=== PATIENT | male | born 1985 | race Two or more races ===

== ENCOUNTER 2024-01-04 13:52 | Emergency (ER) | payer OTHER ==
[~2024-01-04] VITALS: Ht 170.2 cm; Wt 64.4 kg
[2024-01-04] MEDS ORDERED: NS 1,000 ML IV SCH ×2 (14:40→16:50)
[2024-01-04 14:47] LABS: BASOPHILS ABSOLUTE AUTO 0.03 K/mm3 (0.00-0.23); BASOPHILS PERCENT AUTO 0 % (0-2); EOSINOPHILS PERCENT AUTO 0 % (0-6); Hematocrit 31.6 % (37.0-53.0); Hemoglobin 10.4 g/dL (13.5-17.5); IMMATURE GRAN ABSOLUTE AUTO 0.19 K/mm3 (0.00-0.10); IMMATURE GRAN PERCENT AUTO 1 % (0-1); LYMPHOCYTES ABSOLUTE AUTO 0.54 K/mm3 (0.84-5.20); LYMPHOCYTES PERCENT AUTO 3 % (21-46); MONOCYTES ABSOLUTE AUTO 1.54 K/mm3 (0.16-1.47); MONOCYTES PERCENT AUTO 7 % (4-13); Mean Corpuscular HGB 21.8 pg (26.0-34.0); Mean Corpuscular HGB Conc 32.9 g/dL (31.5-36.5); Mean Corpuscular Volume 66 fL (80-100); Mean Platelet Volume 10.8 fL (9.1-12.4); NEUTROPHILS ABSOLUTE AUTO 19.57 K/mm3 (1.96-9.15); NEUTROPHILS PERCENT AUTO 90 % (41-73); NRBC ABSOLUTE 0.26 K/mm3 (0.00-0.02); NRBC Auto 1.2 /100 WBC (0.0-0.2); Platelet Count 251 K/mm3 (150-400); RDW Coefficient Variation 14.3 % (11.7-14.2); RDW Standard Deviation 33.4 fL (35.1-46.3); Red Blood Cell Count 4.78 M/mm3 (4.30-5.90); White Blood Cell Count 21.87 K/mm3 (4.00-11.30)
[2024-01-04] MEDS ORDERED: Pantoprazole Sodium 40 MG Injection IV ONE (14:50)
[2024-01-04] MEDS ORDERED: LORazepam 2 MG/ML 1ML Injection IV ONE (14:50)
[2024-01-04] MEDS ORDERED: Pantoprazole Sodium 40 MG in NS 50 ML IV SCH (14:50)
[2024-01-04] MEDS ORDERED: Octreotide Acetate 500 MCG in NS 250 ML IV SCH (14:55)
[2024-01-04] MEDS ORDERED: Octreotide Acetate 50 MCG in NS 50 ML IV ONE (14:55)
[2024-01-04] MEDS ORDERED: Prochlorperazine Edisylate 10 mg Vial IV ONE (14:55)
[2024-01-04 14:57] LABS: Albumin, Blood 3.7 g/dL (3.4-5.0); Albumin/Globulin Ratio 0.9 (0.8-1.8); Bilirubin, Total 2.1 mg/dL (0.1-1.0); Bun/Creatinine Ratio 82.8 (12.0-20.0); Creatinine, Blood 0.87 mg/dL (0.60-1.20); Globulin, Blood 4.1 g/dL (2.2-4.0); Potassium, Blood 4.3 mmol/L (3.5-5.5); Total Protein, Blood 7.8 g/dL (6.4-8.2)
[2024-01-04 15:29] LABS: International Normalized Ratio 1.05; Prothrombin Time Results 11.2 Sec (9.7-11.5)
[2024-01-04] MEDS ORDERED: PHENobarbitaL sodium 130 MG/ML VIAL IV ONE (16:45)
[2024-01-04] MEDS ORDERED: CefTRIAXone Sodium 2,000 MG in NS 100 ML IV ONE (17:45)
[2024-01-04 19:15] VITALS: BP 137/95
== END 2024-01-04 19:28 | disposition short-term general hospital (02) ==
LOC: ER 13:52
PROVIDERS: Emergency Medicine
DX: K92.2 Gastrointestinal hemorrhage, unspecified (principal); D62 Acute posthemorrhagic anemia; F10.232 Alcohol dependence with withdrawal with perceptual disturbance; R56.9 Unspecified convulsions; F17.210 Nicotine dependence, cigarettes, uncomplicated; Z88.5 Allergy status to narcotic agent
CPT/HCPCS: 36415; 70450; 71045; 80053; 80320; 82272; 83605; 83690; 83735; 85025; 85610; 85730; 86850; 86900; 86901; 87040; 93005; 93010; 96361; 96365; 96366; 96368; 96375; 96376; 99285-25; J0696; J0780; J2060; J2354; J2470; J2560; J7030; J7050

== ENCOUNTER 2024-01-14 15:43 | Inpatient (IN) | payer OTHER ==
[~2024-01-14] VITALS: Ht 170.2 cm; Wt 62.6 kg
[2024-01-14] MEDS ORDERED: PROTONIX40 M9 PO (16:14)
[2024-01-14] MEDS ORDERED: Vitamin B-12100 MCG PO (16:14)
[2024-01-14] MEDS ORDERED: Ondansetron HCl 2 MG / ML 2ML Vial IV ONE (16:30)
[2024-01-14] MEDS ORDERED: FentaNYL Citrate 50 MCG/ML 2 ML Injection IV ONE (16:45)
[2024-01-14 16:57] LABS: BASOPHILS ABSOLUTE AUTO 0.07 K/mm3 (0.00-0.23); BASOPHILS PERCENT AUTO 0 % (0-2); EOSINOPHILS ABSOLUTE AUTO 0.12 K/mm3 (0.00-0.68); EOSINOPHILS PERCENT AUTO 1 % (0-6); Hematocrit 27.8 % (37.0-53.0); Hemoglobin 8.6 g/dL (13.5-17.5); IMMATURE GRAN ABSOLUTE AUTO 0.45 K/mm3 (0.00-0.10); IMMATURE GRAN PERCENT AUTO 3 % (0-1); LYMPHOCYTES ABSOLUTE AUTO 1.58 K/mm3 (0.84-5.20); LYMPHOCYTES PERCENT AUTO 9 % (21-46); MONOCYTES ABSOLUTE AUTO 1.85 K/mm3 (0.16-1.47); MONOCYTES PERCENT AUTO 11 % (4-13); Mean Corpuscular HGB 21.8 pg (26.0-34.0); Mean Corpuscular HGB Conc 30.9 g/dL (31.5-36.5); Mean Corpuscular Volume 70 fL (80-100); NEUTROPHILS ABSOLUTE AUTO 13.31 K/mm3 (1.96-9.15); NEUTROPHILS PERCENT AUTO 77 % (41-73); NRBC ABSOLUTE 0.05 K/mm3 (0.00-0.02); NRBC Auto 0.3 /100 WBC (0.0-0.2); Platelet Count 550 K/mm3 (150-400); RDW Coefficient Variation 17.6 % (11.7-14.2); RDW Standard Deviation 42.4 fL (35.1-46.3); Red Blood Cell Count 3.95 M/mm3 (4.30-5.90); White Blood Cell Count 17.38 K/mm3 (4.00-11.30)
[2024-01-14 17:14] LABS: Albumin, Blood 3.1 g/dL (3.4-5.0); Albumin/Globulin Ratio 0.7 (0.8-1.8); Bilirubin, Total 0.7 mg/dL (0.1-1.0); Bun/Creatinine Ratio 16.9 (12.0-20.0); Calcium, Blood 9.3 mg/dL (8.5-10.1); Creatinine, Blood 0.71 mg/dL (0.60-1.20); Globulin, Blood 4.3 g/dL (2.2-4.0); Potassium, Blood 3.9 mmol/L (3.5-5.5); Total Protein, Blood 7.4 g/dL (6.4-8.2)
[2024-01-14] MEDS ORDERED: FLU VACC TS2024-25(6MOS UP)/PF 45 MCG/0.5 ML SYRINGE IM ONE (18:05)
[2024-01-14] MEDS ORDERED: Ondansetron HCl 2 MG / ML 2ML Vial IV PRN (18:05)
[2024-01-14] MEDS ORDERED: FentaNYL Citrate 50 MCG/ML 2 ML Injection IV PRN ×2 (18:10→20:45)
[2024-01-14] MEDS ORDERED: NS 1,000 ML IV SCH (18:10)
[2024-01-14 18:27] LABS: Percent Saturation 8.7 % (20.0-50.0)
[2024-01-14 19:52] LABS: International Normalized Ratio 1.01; Prothrombin Time Results 10.8 Sec (9.7-11.5)
[2024-01-14 20:40] VITALS: BP 128/91
[2024-01-14] MEDS ORDERED: Sennosides 8.6 MG Tab PO SCH (21:00)
[2024-01-14 21:25] LABS: Hemoglobin 8.2 g/dL (13.5-17.5)
[2024-01-15] VITALS (21 sets, daily range): BP systolic 122–156; BP diastolic 77–102
[2024-01-15] MEDS ORDERED: OxyCODONE HCL 5 MG TAB PO PRN ×2 (04:35→12:55)
[2024-01-15] MEDS ORDERED: HYDROmorphone HCl/Pf 1MG SYR IV PRN ×2 (04:35→13:00)
[2024-01-15 04:53] LABS: Hematocrit 25.3 % (37.0-53.0); Hemoglobin 7.9 g/dL (13.5-17.5); Mean Corpuscular HGB 21.8 pg (26.0-34.0); Mean Corpuscular HGB Conc 31.2 g/dL (31.5-36.5); Mean Corpuscular Volume 70 fL (80-100); Mean Platelet Volume 8.8 fL (9.1-12.4); Platelet Count 503 K/mm3 (150-400); RDW Coefficient Variation 17.2 % (11.7-14.2); RDW Standard Deviation 41.8 fL (35.1-46.3); Red Blood Cell Count 3.63 M/mm3 (4.30-5.90); White Blood Cell Count 15.58 K/mm3 (4.00-11.30)
[2024-01-15 05:34] LABS: Albumin, Blood 2.7 g/dL (3.4-5.0); Albumin/Globulin Ratio 0.7 (0.8-1.8); Bilirubin, Total 0.6 mg/dL (0.1-1.0); Bun/Creatinine Ratio 17.8 (12.0-20.0); Calcium, Blood 8.6 mg/dL (8.5-10.1); Creatinine, Blood 0.68 mg/dL (0.60-1.20); Globulin, Blood 3.9 g/dL (2.2-4.0); Potassium, Blood 4.1 mmol/L (3.5-5.5); Total Protein, Blood 6.6 g/dL (6.4-8.2)
--- NOTE | 2024-01-15 06:01 | NUR ---
THIS NURSE ASSUMED CARE OF PATIENT AT 0250. PATIENT IS ALERT AND ORIENTED. HE IS COMPLAINING OF RT HIP PAIN. PT WAS MEDICATED WITH FENTANYL 50MCG IV WITH MINIMAL RELIEF THIS TIME. DR. QUINTANA CALLED AND PT MEDS CHANGED, GIVEN DILAUDID 1MG. PT TOLD NURSE HE HAD ALMOST INSTANT RELIEF BUT NOW STATES PAIN STAYED AT A 7/10. PT IS SL DIAPHORETIC, HAS SOME TREMORS, PT DENIES ANY WITHDRAWL SYMPTOMS, STATES IT IS FROM THE PAIN. PT IS NPO FOR POSSIBLE SURG TODAY. IV FLUIDS ORDERED. PT IS ON BEDREST AND USING URINAL. CALL LIGHT IN REACH.
[2024-01-15 08:18] LABS: IMMATURE RETIC FRACTION 45.2 % (2.3-16.0); RETIC HGB EQUIVALENT 21.2 pg (28.20-36.60); RETICULOCYTE ABSOLUTE 0.1448 M/mm3 (0.0200-0.1100)
[2024-01-15] MEDS ORDERED: Pantoprazole Sodium 40 MG Injection IV SCH (09:00)
[2024-01-15] MEDS ORDERED: HydrOXYzine Pamoate 50 MG Cap PO ONE (10:00)
[2024-01-15] MEDS ORDERED: HydrOXYzine Pamoate 50 MG Cap PO PRN (10:00)
[2024-01-15] MEDS ORDERED: VITAMIN B-1100 M1 PO (10:23)
[2024-01-15] MEDS ORDERED: Lactated Ringer's 1,000 ML IV SCH (10:25)
--- NOTE | 2024-01-15 11:06 | NUR ---
PT ARRIVED TO ROOM VIA HOSPITAL BED. A&O X4. VSS. PPP. PLEASENT MOOD. ORIENTED TO ROOM. BED IN LOWEST POSITION, CALL LIGHT WITHIN REACH.
--- NOTE | 2024-01-15 11:46 | NUR ---
PT WHEELED TO DAY SURG VIA HOSPITAL BED AT THIS TIME
--- NOTE | 2024-01-15 11:58 | NUR ---
TRANSFER TO SURG 213 1030 PT A&OX4, COOPERATIVE. DISCUSSIONS SURGICAL OPTIONS WITH PT WITH RN PRESENT. DORA PAZ AND THIS RN TOOK PT DOWN TO SURG 213. REPORT GIVEN TO LENNOX PAZ.
[2024-01-15] MEDS ORDERED: Tranexamic Acid 100 ML IV SCH (12:00)
[2024-01-15] MEDS ORDERED: HYDROmorphone HCl/Pf 1MG SYR ONE (12:00)
[2024-01-15] MEDS ORDERED: CeFAZolin Sodium 2,000 MG in NS 100 ML IV SCH ×2 (12:00→21:00)
[2024-01-15] MEDS ORDERED: Magnesium Hydroxide Conc 10 ML UDC PO PRN (12:55)
[2024-01-15] MEDS ORDERED: Metoclopramide HCl 10 MG Tab PO PRN (12:55)
[2024-01-15] MEDS ORDERED: NS KCl 20mEq 1,000 ML IV SCH (12:55)
[2024-01-15] MEDS ORDERED: Ondansetron HCl 2 MG / ML 2ML Vial IV PRN (13:00)
[2024-01-15] MEDS ORDERED: DiphenhydrAMINE HCL 25 MG Cap PO PRN (13:00)
[2024-01-15] MEDS ORDERED: Ondansetron 4 MG TAB PO PRN (13:00)
[2024-01-15] MEDS ORDERED: Naloxone HCl 0.4MG / ML 1ML Vial IV PRN (13:00)
[2024-01-15] MEDS ORDERED: FLU VACC TS2024-25(6MOS UP)/PF 45 MCG/0.5 ML SYRINGE IM PRN (13:00)
[2024-01-15] MEDS ORDERED: Bisacodyl 10 MG Supp PR PRN (13:00)
[2024-01-15] MEDS ORDERED: Acetaminophen 325 MG TABLET PO PRN (13:05)
[2024-01-15] MEDS ORDERED: FentaNYL Citrate 50 MCG/ML 2 ML Injection ONE ×2 (13:09→14:21)
[2024-01-15] MEDS ORDERED: propofoL 20 ML IV ONE (13:09)
[2024-01-15] MEDS ORDERED: Rocuronium Bromide 10 MG/ML 5ML Injection IV ONE (14:12)
[2024-01-15] MEDS ORDERED: Dexamethasone Sod Phos 10 MG/ML 1ML VIAL ONE (14:12)
[2024-01-15] MEDS ORDERED: Lidocaine HCl 2% 20 ML MDV ONE (14:12)
[2024-01-15] MEDS ORDERED: Ondansetron HCl 2 MG / ML 2ML Vial ONE (14:12)
[2024-01-15] MEDS ORDERED: Neostigmine Methylsulfate 5MG/5ML SYR ONE (14:13)
[2024-01-15] MEDS ORDERED: Glycopyrrolate 0.2 MG/ML 5ML VIAL ONE (14:13)
--- NOTE | 2024-01-15 15:18 | NUR ---
PT ARRIVED TO FLOOR VIA HOSPITAL BED. A&O X4, PT STATES HE IS HYPERTENSIVE AT BASELINE. BP ELEVATED. VSS. PPP, INCISION COVERED WITH GAUZE AND FOAM TAPE C/D/I. SNACKS AND WATER AT BEDSIDE. BED IN LOWEST POSITION. CALL LIGHT WITHIN REACH.
--- NOTE | 2024-01-15 17:22 | NUR ---
SHIFT SUMMARY POD 0 L HIP NAILING. INCISION COVERED WITH GAUZE AND FOAM TAPE. C/D/I. PPP. PT IS EATING AND VOIDING WITHOUT ISSUE. HAS EATEN A COUPLE BITES OF A CRACKER SINCE RETURNING TO THE ROOM. PAIN MEDICATED PER EMAR.
[2024-01-15] MEDS ORDERED: Docusate Sodium 100 MG Cap PO SCH (21:00)
[2024-01-16] MEDS ORDERED: OxyCODONE HCL 5 MG TAB PO PRN (00:17)
[2024-01-16 03:47] VITALS: BP 143/96
[2024-01-16 05:01] LABS: BASOPHILS ABSOLUTE AUTO 0.05 K/mm3 (0.00-0.23); BASOPHILS PERCENT AUTO 0 % (0-2); EOSINOPHILS ABSOLUTE AUTO 0.07 K/mm3 (0.00-0.68); EOSINOPHILS PERCENT AUTO 0 % (0-6); Hematocrit 26.3 % (37.0-53.0); Hemoglobin 8.3 g/dL (13.5-17.5); IMMATURE GRAN PERCENT AUTO 1 % (0-1); LYMPHOCYTES ABSOLUTE AUTO 1.31 K/mm3 (0.84-5.20); LYMPHOCYTES PERCENT AUTO 8 % (21-46); MONOCYTES ABSOLUTE AUTO 1.59 K/mm3 (0.16-1.47); MONOCYTES PERCENT AUTO 9 % (4-13); Mean Corpuscular HGB 21.8 pg (26.0-34.0); Mean Corpuscular HGB Conc 31.6 g/dL (31.5-36.5); Mean Corpuscular Volume 69 fL (80-100); Mean Platelet Volume 8.9 fL (9.1-12.4); NEUTROPHILS ABSOLUTE AUTO 14.06 K/mm3 (1.96-9.15); NEUTROPHILS PERCENT AUTO 81 % (41-73); Platelet Count 516 K/mm3 (150-400); RDW Coefficient Variation 16.9 % (11.7-14.2); RDW Standard Deviation 40.6 fL (35.1-46.3); White Blood Cell Count 17.28 K/mm3 (4.00-11.30)
[2024-01-16 05:27] LABS: Albumin, Blood 2.8 g/dL (3.4-5.0); Albumin/Globulin Ratio 0.7 (0.8-1.8); Bilirubin, Total 0.7 mg/dL (0.1-1.0); Bun/Creatinine Ratio 12.9 (12.0-20.0); Calcium, Blood 9.4 mg/dL (8.5-10.1); Creatinine, Blood 0.62 mg/dL (0.60-1.20); Potassium, Blood 3.7 mmol/L (3.5-5.5); Total Protein, Blood 6.8 g/dL (6.4-8.2)
--- NOTE | 2024-01-16 05:40 | NUR ---
NOC SUMMARY- PT WAS COMPLAINING OF CONTINUED PAIN. DR QUINTANA WAS CALLED AND ORDERED ADDITIONAL PO PAIN MED. PT REFUSED TO TRY AND AMBULATE WITH GB AND FWW. PT REMAINS TREMULOUS. PT IS VOIDING WELL VIA URINAL. PT TAKING IN PO FLUIDS WELL. DRESSING C/D/I. CALL LIGHT IN REACH.
[2024-01-16 07:34] VITALS: BP 156/99
[2024-01-16] MEDS ORDERED: Thiamine HCl 100 MG Tab PO SCH (09:00)
[2024-01-16 15:13] VITALS: BP 166/106
--- NOTE | 2024-01-16 18:45 | NUR ---
SHIFT SUMMARY POD 1 R HIP PINNING. INCISION SITE COVERED WITH AQUACEL, C/D/I. PT STATES THAT HIP IS STILL VERY PAINFUL TO MOVE. PAIN MEDICATED PER EMAR. PPP. VSS. A&O X4. WORKED WITH PT THIS AFTERNOON, WILL WORK WITH PHYSICAL THERAPY TOMORROW. NO ACUTE EVENTS THROUGHOUT THE DAY.
[2024-01-16 19:01] VITALS: BP 168/95
[2024-01-17 03:16] VITALS: BP 141/93
[2024-01-17 04:49] LABS: BASOPHILS ABSOLUTE AUTO 0.04 K/mm3 (0.00-0.23); BASOPHILS PERCENT AUTO 0 % (0-2); EOSINOPHILS ABSOLUTE AUTO 0.21 K/mm3 (0.00-0.68); EOSINOPHILS PERCENT AUTO 2 % (0-6); Hematocrit 27.5 % (37.0-53.0); Hemoglobin 8.8 g/dL (13.5-17.5); IMMATURE GRAN ABSOLUTE AUTO 0.16 K/mm3 (0.00-0.10); IMMATURE GRAN PERCENT AUTO 1 % (0-1); LYMPHOCYTES ABSOLUTE AUTO 1.53 K/mm3 (0.84-5.20); LYMPHOCYTES PERCENT AUTO 12 % (21-46); MONOCYTES ABSOLUTE AUTO 1.34 K/mm3 (0.16-1.47); MONOCYTES PERCENT AUTO 11 % (4-13); Mean Corpuscular HGB 21.9 pg (26.0-34.0); Mean Corpuscular Volume 69 fL (80-100); Mean Platelet Volume 8.8 fL (9.1-12.4); NEUTROPHILS ABSOLUTE AUTO 9.06 K/mm3 (1.96-9.15); NEUTROPHILS PERCENT AUTO 73 % (41-73); Platelet Count 495 K/mm3 (150-400); RDW Coefficient Variation 15.9 % (11.7-14.2); RDW Standard Deviation 38.6 fL (35.1-46.3); Red Blood Cell Count 4.01 M/mm3 (4.30-5.90); White Blood Cell Count 12.34 K/mm3 (4.00-11.30)
[2024-01-17 05:20] LABS: Bun/Creatinine Ratio 12.1 (12.0-20.0); Creatinine, Blood 0.58 mg/dL (0.60-1.20); Potassium, Blood 3.8 mmol/L (3.5-5.5)
--- NOTE | 2024-01-17 05:46 | NUR ---
NOC SUMMARY- PT PAIN HAS BEEN MANAGED WITH PO MEDS ONLY THIS SHIFT. PT IS AWARE HE HAS TO USE PO PAIN MEDS AT HOME. PT ABLE TO SLEEP SOME. PT VOIDING WELL. PT DRESSING C/D/I. CALL LIGHT IN REACH.
[2024-01-17 08:13] VITALS: BP 144/92
[2024-01-17 16:34] VITALS: BP 136/94
--- NOTE | 2024-01-17 19:46 | NUR ---
SHIFT SUMMARY POD2 R PERC HIP PINNING, A/OX4, VSS, TOLERATING PO, ABLE TO GET UP TO CHAIR. PT REPOTS POOR PAIN MANAGEMENT EVEN THOUGH HE DOES NOT APPEAR TO BE IN ANY SIGNIFICANT AMOUNT OF PAIN. HE IS CONSISTENTLY REPORTING HIGH PAIN LEVELS USIN 0-10 SCALE EVEN THOUGH FACE AND FLACC SCALE BOTH SHOW LOW PAIN. FACE AND FLACC SCALE DO GO UP BY 1 POINT WITH MOVEMENT/AMBULATION BUT HAVE NOT EXCEEDED 4 AT ANY TIME TODAY. NO ACUTE EVENTS THIS SHIFT, CALL LIGHT IN REACH.
[2024-01-17 19:47] VITALS: BP 137/90
--- NOTE | 2024-01-18 04:49 | NUR ---
SHIFT SUMMARY PT S/P RIGHT HIP PINNING, PT HAS RESTED IN BED T/O THE NIGHT. INTERMITTENT PAIN RELEIVED WITH MEDS PER EMAR. SURGICAL SITE WNL, DRESSING INTACT. VITALS ARE STABLE. PLAN OF CARE UNCHANGED. BED IN LOWEST POSITION, CALL LIGHT WITHIN REACH.
[2024-01-18 05:07] VITALS: BP 144/97
[2024-01-18 07:10] VITALS: BP 144/92
[2024-01-18 15:51] VITALS: BP 148/103
--- NOTE | 2024-01-18 18:42 | NUR ---
SHIFT SUMMARY PT IS POD#2 FROM R HIP PINNING. PAIN MANAGED WITH PO PAIN MEDICATION AND IV DILAUDID X2. PT IS A 1 ASSIST WHEN OOB WITH GAIT BELT AND WALKER. PT WORKED WITH PT TODAY. PT REMAINS IN THE HOSPITAL FOR PAIN MANAGEMENT. PT USES CALL LIGHT APPROPRIATELY.
[2024-01-18 19:37] VITALS: BP 147/97
[2024-01-18] MEDS ORDERED: HydrOXYzine Pamoate 50 MG Cap PO PRN (22:00)
[2024-01-19 00:12] VITALS: BP 136/95
[2024-01-19 05:23] VITALS: BP 151/98
[2024-01-19 06:30] LABS: Hematocrit 29.1 % (37.0-53.0); Hemoglobin 9.1 g/dL (13.5-17.5); Mean Corpuscular HGB 21.5 pg (26.0-34.0); Mean Corpuscular HGB Conc 31.3 g/dL (31.5-36.5); Mean Corpuscular Volume 69 fL (80-100); Mean Platelet Volume 9.2 fL (9.1-12.4); Platelet Count 527 K/mm3 (150-400); RDW Coefficient Variation 15.3 % (11.7-14.2); RDW Standard Deviation 37.2 fL (35.1-46.3); Red Blood Cell Count 4.23 M/mm3 (4.30-5.90); White Blood Cell Count 9.13 K/mm3 (4.00-11.30)
[2024-01-19 07:09] LABS: Albumin, Blood 3.1 g/dL (3.4-5.0); Albumin/Globulin Ratio 0.7 (0.8-1.8); Bilirubin, Total 0.7 mg/dL (0.1-1.0); Bun/Creatinine Ratio 21.3 (12.0-20.0); Calcium, Blood 9.7 mg/dL (8.5-10.1); Creatinine, Blood 0.56 mg/dL (0.60-1.20); Globulin, Blood 4.5 g/dL (2.2-4.0); Potassium, Blood 4.1 mmol/L (3.5-5.5); Total Protein, Blood 7.6 g/dL (6.4-8.2)
--- NOTE | 2024-01-19 07:15 | NUR ---
SHIFT SUMMARY NOC. PT S/P RIGHT HIP PINNING. A/O X4, AQUACEL C/D/I ASIDE FROM SCANT DRAINAGE. PT VOIDING AND TOLERATING PO INTAKE. PT HAD BM THIS SHIFT. PT MEDICATED FOR PAIN WITH SOME REPORTED RELIEF OF SX. PT HAD VISTARIL X1 FOR ANXIETY. CALL LIGHT IN REACH.
[2024-01-19 07:31] VITALS: BP 122/95
[2024-01-19] MEDS ORDERED: OXYC10TA19 PO (10:38)
[2024-01-19] MEDS ORDERED: MIRALAX17 GM PO (11:58)
[2024-01-19 14:46] VITALS: BP 145/98
--- NOTE | 2024-01-19 15:27 | NUR ---
SHIFT SUMMARY PT PROVIDED WITH WRITTEN AND VERBAL DISCHARGE INSTRUCTIONS, HE REPORTED UNDERSTANDING. PT REPORTED PAIN ELEVATED AFTER GETTING DRESSED AND READY FOR DISCHARGE BUT TOLERABLE. EDUCATION PROVIDED ABOUT OXYCODONE AND TYLENOL USE FOR PAIN. PT DECLINED TO WEAR [facility] HOME. [facility] SENT HOME WITH PT. PT ENCOURAGED TO GET OOB AND MOVE EVERY 1-2 HOURS TO PREVENT STIFFNESS AND BLOOD CLOTS. PT SENT HOME WITH WALKER. VSS PRIOR TO DISCHARGE. PT ENCOURAGED TO F/U WITH PCP WITHIN 1 WEEK AND TO F/U WITH DR. OLSON IN 2 WKS. PT SENT HOME WITH CLEAN AQUACEL DRESSINGS. PRESCRIPTION SENT WITH PT FOR OXYCODONE.
== END 2024-01-19 14:49 | disposition home health service (06) | DRG 480 ==
LOC: ER 15:43 → SURS 18:03 → ERHOLD 18:03 → MEDS 18:03 → SURS 01-15 10:46
PROVIDERS: Family Medicine; Nurse Practitioner Acute Care; Orthopaedic Surgery; Physician Assistant; Student in an Organized Health Care Education/Training Program; ADMIT Student in an Organized Health Care Education/Training Program
PROC: 0QS604Z Reposition Right Upper Femur with Internal Fixation Device, Open Approach (ICD-10-PCS; principal; 2024-01-15 12:30)
DX: S72.011A Unspecified intracapsular fracture of right femur, initial encounter for closed fracture (principal); S39.012A Strain of muscle, fascia and tendon of lower back, initial encounter; S76.011A Strain of muscle, fascia and tendon of right hip, initial encounter; S60.211A Contusion of right wrist, initial encounter; K22.6 Gastro-esophageal laceration-hemorrhage syndrome; M25.551 Pain in right hip; V29.99XA Rider (driver) (passenger) of other motorcycle injured in unspecified traffic accident, initial encounter; D72.829 Elevated white blood cell count, unspecified; D50.9 Iron deficiency anemia, unspecified; F41.9 Anxiety disorder, unspecified; F10.20 Alcohol dependence, uncomplicated; Z88.5 Allergy status to narcotic agent; Z79.899 Other long term (current) drug therapy; F17.210 Nicotine dependence, cigarettes, uncomplicated
CPT/HCPCS: 36415; 72100; 72192; 73110; 73502; 80048; 80053; 80320; 82728; 83540; 83550; 85014; 85018; 85025; 85027; 85045; 85610; 86850; 86900; 86901; 94760; 94762; 96374; 96375; 97110; 97116; 97161; 97165; 97530; 97535; 99284-25; A9270; C1713; C1769; J0690; J1100; J1170; J2405; J2470; J2704; J2710; J3010; J7030; J7120

== ENCOUNTER 2024-05-05 09:21 | Day surgery (SDC) | payer OTHER ==
[~2024-05-05] VITALS: Ht 170.2 cm; Wt 67.4 kg
[~2024-05-05 09:21] MED LIST: Lactated Ringer's 1,000 ML IV ONE; MIRALAX17 GM PO; OXYC10TA19 PO; PROTONIX40 M9 PO; VITAMIN B-1100 M1 PO; Vitamin B-12100 MCG PO; propofoL 40 ML IV ONE
[2024-05-05 10:13] VITALS: BP 173/115
--- NOTE | 2024-05-05 10:46 | NUR ---
05/05/24 [address] PT PRESENTED TO [facility] FOR OUTPATIENT ENDOSCOPY PROCEDURE, PT REPORTED HX OF ALCOHOL ABUSE, REPORTING LAST DRINK LAST NIGHT AT 5:00 PM. PER H AND P, PT WITH HX OF PINT PER DAY OF HARD ALCOHOL. PT IS ATTEMPTING TO QUIT ALCOHOL ABUSE, PRESENTS HYPERTENSIVE, AND SHAKING, IN ACTIVE DETOX. DR. VALLADARES CONSULTED AND DR. HERNANDEZ DISCUSSED CASE, DECISION WAS MADE TO DC PATIENT TO CHECK IN TO ER FOR MONITORING.
== END 2024-05-05 10:45 | disposition home or self-care (01) ==
LOC: ORSCSDS 09:21
DX: K22.6 Gastro-esophageal laceration-hemorrhage syndrome (principal); Z53.9 Procedure and treatment not carried out, unspecified reason
CPT/HCPCS: J2704; J7120

== ENCOUNTER 2024-05-05 10:42 | Emergency (ER) | payer OTHER ==
[~2024-05-05] VITALS: Ht 170.2 cm; Wt 67.1 kg
[~2024-05-05 10:42] MED LIST changes: -Lactated Ringer's 1,000 ML IV ONE; -propofoL 40 ML IV ONE
[2024-05-05 11:05] VITALS: BP 185/110
== END 2024-05-05 11:16 | disposition home or self-care (01) ==
LOC: ER 10:42
DX: F10.239 Alcohol dependence with withdrawal, unspecified (principal); F17.210 Nicotine dependence, cigarettes, uncomplicated; Z79.899 Other long term (current) drug therapy; Z88.5 Allergy status to narcotic agent
CPT/HCPCS: 99284

== ENCOUNTER 2024-05-07 09:55 | Inpatient (IN) | payer OTHER ==
[~2024-05-07] VITALS: Ht 170.2 cm; Wt 64.1 kg
[2024-05-07] MEDS ORDERED: Ondansetron HCl 2 MG / ML 2ML Vial IV ONE (10:25)
[2024-05-07] MEDS ORDERED: Lactated Ringer's 1,000 ML IV ONE (10:25)
[2024-05-07] MEDS ORDERED: Multivitamins 1 Tab PO ONE (10:30)
[2024-05-07] MEDS ORDERED: PHENobarbital Sodium 65MG / ML 1ML Vial IV ONE (10:30)
[2024-05-07] MEDS ORDERED: Thiamine HCl 100 MG Tab PO ONE (10:30)
[2024-05-07] MEDS ORDERED: Folic Acid 1 MG TAB PO ONE (10:30)
[2024-05-07 10:53] LABS: BASOPHILS ABSOLUTE AUTO 0.02 K/mm3 (0.00-0.23); BASOPHILS PERCENT AUTO 0 % (0-2); EOSINOPHILS PERCENT AUTO 2 % (0-6); Hematocrit 39.5 % (37.0-53.0); Hemoglobin 12.9 g/dL (13.5-17.5); IMMATURE GRAN ABSOLUTE AUTO 0.07 K/mm3 (0.00-0.10); IMMATURE GRAN PERCENT AUTO 1 % (0-1); LYMPHOCYTES ABSOLUTE AUTO 0.88 K/mm3 (0.84-5.20); LYMPHOCYTES PERCENT AUTO 13 % (21-46); MONOCYTES PERCENT AUTO 10 % (4-13); Mean Corpuscular HGB 20.9 pg (26.0-34.0); Mean Corpuscular HGB Conc 32.7 g/dL (31.5-36.5); Mean Corpuscular Volume 64 fL (80-100); Mean Platelet Volume 8.5 fL (9.1-12.4); NEUTROPHILS PERCENT AUTO 74 % (41-73); Platelet Count 236 K/mm3 (150-400); RDW Coefficient Variation 16.9 % (11.7-14.2); RDW Standard Deviation 35.4 fL (35.1-46.3); Red Blood Cell Count 6.18 M/mm3 (4.30-5.90); White Blood Cell Count 6.77 K/mm3 (4.00-11.30)
[2024-05-07 11:11] LABS: Albumin, Blood 3.7 g/dL (3.4-5.0); Albumin/Globulin Ratio 0.9 (0.8-1.8); Bilirubin, Total 1.4 mg/dL (0.1-1.0); Bun/Creatinine Ratio 21.9 (12.0-20.0); Calcium, Blood 9.1 mg/dL (8.5-10.1); Creatinine, Blood 0.55 mg/dL (0.60-1.20); Globulin, Blood 4.3 g/dL (2.2-4.0); Magnesium, Blood 1.5 mg/dL (1.6-2.4); Potassium, Blood 3.4 mmol/L (3.5-5.5)
[2024-05-07] MEDS ORDERED: ChlordiazePOXIDE 25 MG Cap PO PRN (13:15)
[2024-05-07] MEDS ORDERED: Lactated Ringer's 1,000 ML IV SCH (13:20)
[2024-05-07] MEDS ORDERED: LORazepam 2 MG/ML 1ML Injection IV PRN ×3 (13:20→17:30)
[2024-05-07] MEDS ORDERED: Ondansetron HCl 2 MG / ML 2ML Vial IV PRN (13:20)
[2024-05-07] MEDS ORDERED: Diazepam 5 MG / ML 2ML SYR IV PRN (13:20)
[2024-05-07] MEDS ORDERED: FLU VACC TS2024-25(6MOS UP)/PF 45 MCG/0.5 ML SYRINGE IM SCH (13:20)
[2024-05-07] MEDS ORDERED: Nicotine 21 MG PATCH TOP SCH (14:00)
[2024-05-07] MEDS ORDERED: Gabapentin 300 MG Cap PO SCH (14:00)
[2024-05-07] MEDS ORDERED: Thiamine HCl 250 MG in NS 100 ML IV SCH (14:00)
[2024-05-07 15:52] VITALS: BP 153/107
[2024-05-07] MEDS ORDERED: CITALOPRAM HBR10 MG PO (15:54)
[2024-05-07 16:22] VITALS: BP 136/92
[2024-05-07] MEDS ORDERED: Pantoprazole Sodium 40 MG Injection IV SCH (16:30)
[2024-05-07] MEDS ORDERED: Mag Sulfate 1 GM/D5% 100ML 100 ML IV STA (17:33)
[2024-05-07] MEDS ORDERED: Potassium Chloride 40 MEQ in NS 250 ML IV STA (17:34)
--- NOTE | 2024-05-07 18:50 | NUR ---
SHIFT SUMMARY: PT ARRIVED TO PCU 8 FROM THE ED AT 1540. PT ARRIVED VIA WHEELCHAIR AND WAS ABLE TO AMBULATE TO THE BED WITH 1 PERSON ASSIST. PT ARRIVED REPORTING THAT HE FELT DISORIENTATED. A CIWA WAS PERFORMED AND PT WAS AT A 15. PT WAS MEDICATED AND HAS BEEN RESTING SINCE. A SECOND LINE WAS STARTED. PT REMAINS ON TELE AND CONTINUOUS BIOX. MAG AND POTASSIUM WERE STARTED ON PT. LR CONTINUESA T 100ML/HR. SEIZURE PADS PLACED ON BED. BED IN LOW POSITION AND CALL LIGHT IS WITHIN REACH.
[2024-05-08] VITALS (10 sets, daily range): BP systolic 133–160; BP diastolic 94–108
[2024-05-08 04:18] LABS: BASOPHILS ABSOLUTE AUTO 0.03 K/mm3 (0.00-0.23); BASOPHILS PERCENT AUTO 0 % (0-2); EOSINOPHILS ABSOLUTE AUTO 0.19 K/mm3 (0.00-0.68); EOSINOPHILS PERCENT AUTO 3 % (0-6); Hematocrit 35.9 % (37.0-53.0); Hemoglobin 11.7 g/dL (13.5-17.5); IMMATURE GRAN ABSOLUTE AUTO 0.07 K/mm3 (0.00-0.10); IMMATURE GRAN PERCENT AUTO 1 % (0-1); LYMPHOCYTES ABSOLUTE AUTO 1.48 K/mm3 (0.84-5.20); LYMPHOCYTES PERCENT AUTO 22 % (21-46); MONOCYTES ABSOLUTE AUTO 0.77 K/mm3 (0.16-1.47); MONOCYTES PERCENT AUTO 11 % (4-13); Mean Corpuscular HGB 20.9 pg (26.0-34.0); Mean Corpuscular HGB Conc 32.6 g/dL (31.5-36.5); Mean Corpuscular Volume 64 fL (80-100); NEUTROPHILS ABSOLUTE AUTO 4.31 K/mm3 (1.96-9.15); NEUTROPHILS PERCENT AUTO 63 % (41-73); NRBC ABSOLUTE 0.02 K/mm3 (0.00-0.02); NRBC Auto 0.3 /100 WBC (0.0-0.2); Platelet Count 221 K/mm3 (150-400); RDW Coefficient Variation 16.8 % (11.7-14.2); RDW Standard Deviation 35.7 fL (35.1-46.3); Red Blood Cell Count 5.59 M/mm3 (4.30-5.90); White Blood Cell Count 6.85 K/mm3 (4.00-11.30)
[2024-05-08 04:40] LABS: Bun/Creatinine Ratio 13.3 (12.0-20.0); Calcium, Blood 8.8 mg/dL (8.5-10.1); Creatinine, Blood 0.6 mg/dL (0.60-1.20); Potassium, Blood 3.9 mmol/L (3.5-5.5)
--- NOTE | 2024-05-08 04:56 | NUR ---
SHIFT SUMMARY PT APPEARS TO HAVE INCREASING WITHDRAWL SYMPTOMS THROUGHOUT SHIFT, HOWEVER, SYMPTOMS HAVE BEEN MANAGEABLE WITH ATIVAN PUSHES. PT REMAINS ON ROOM AIR, ABLE TO MOVE ALL EXTREMETIES AND IS ALERT AND ORIENTED UPON BEING WOKEN UP. PT REMAINS SINUS RHYTHM ON ROOM AIR, CONTINENT AND VOIDING URINE. PT WAS ABLE TO AMBULATE TO BATHROOM AT BEGINNING OF SHIFT. WILL CONTINUE TO MONITOR UNTIL REPORT IS PASSED TO THE DAY SHIFT TEAM.
[2024-05-08] MEDS ORDERED: Folic Acid 1 MG in NS 50 ML IV SCH (09:00)
[2024-05-08] MEDS ORDERED: Acetaminophen 500 MG Tab PO PRN (11:40)
[2024-05-08] MEDS ORDERED: Naproxen 250 MG TAB PO PRN (11:40)
--- NOTE | 2024-05-08 16:15 | NUR ---
UPDATE/FALL SUMMARY THIS RN CALLED TO ROOM BY PHYSICAL THERAPY RESIDENT AT 0910. PT WAS PLACED IN SHOWER CHAIR BY AIDES, CHECKED ON PT FREQUENTLY. PT STATES HX OF R ANKLE INJURY. PRIOR TO PULLING CALL LIGHT, PT STATES HE STOOD UP FROM CHAIR AND 'STEPPED OUT OF SHOWER BUT MY ANKLE GAVE OUT'. PT WAS FOUND ON ELBOWS AND KNEES, C/O OF ANKLE PAIN. GOWN PLACED ON PT AND GB APPLIED. STOOD UP W/ 3 STAFF, FWW, AND ASSISTED INTO RECLINER. NOTIFIED. XRAY TO ROOM FOR ANKLE, SEE RESULTS. BED ALARM/CHAIR ALARM ON. PT EDUCATED ON SAFETY/NURSE ASSIST.
--- NOTE | 2024-05-08 17:31 | NUR ---
SHIFT SUMMARY NO ACUTE CHANGES SINCE PREVIOUS NOTE. PT ALERT, ABLE TO MAKE NEEDS KNOWN. BED ALARM ON. VSS. CIWA 11-17 THIS SHIFT, MEDICATED PER EMAR W/ LIBRIUM AND ATIVAN. LR INFUSING PER EMAR. PT USING URINAL TO VOID. ADVANCED TO FULL LIQUID DIET. C/O OF R ANKLE PAIN, MEDICATED W/ TYLENOL PER EMAR. PT CURRENTLY EATING DINNER IN BED. BED ALARM ON. CALL LIGHT IN REACH.
--- NOTE | 2024-05-08 18:32 | NUR ---
UPDATE PT REQUESTED MALE TECH IN ROOM TO TALK. PER PCT, PT STATED PT BIT 'HOLE IN IV TUBING TO CREATE BUBBLE' IN AN ATTEMPT FOR SI. FLUIDS LEAKING ON FLOOR. PT STATES HAVING THOUGHTS OF SUICIDE. CALL PLACED TO . W/ ORDERS FOR SI PRECAUTIONS, SITTER, PSYCH CONSULT. ROOM MITIGATED, PT 1:1 W/ SITTER. FACESHEET SENT TO ER FOR CONSULT.
--- NOTE | 2024-05-08 21:58 | NUR ---
ASSUMPTION OF CARE: PATIENT IS ALERT AND ORIENTED X 4 ABLE TO MAKE NEEDS KNOWN, PAIN TO THE RIGHT ANKLE MULTIPLE VIEWED XRAY, NEG FOR FX. PATIENT HAS BEEN ABLE TO AMBULATE 1 X PERSON AND WALKER WITH SBA ASSISTANCE. NO OXYGEN, SPO2 >98%. HAS BEEN ENDORSING HIGH ANXIETY TREMOR, VISUAL HALLUCINATIONS, MEDICATED PER MAR, DENIES CARDIAC CHEST PAIN, NO SOB AT REST, SITTER, NO ACTIVE PLAN ABLE TO MAKE NEEDS KNOWN. NO CLOUDED SENSORIUM NOTED, LAST DRINK THIS AM
[2024-05-09] VITALS (8 sets, daily range): BP systolic 113–146; BP diastolic 88–99
--- NOTE | 2024-05-09 04:31 | NUR ---
EOS: PATIENT WITH NO ACUTE CHANGES THROUGH THE NIGHT, CIWA HAS BEEN STABLE WITH USE OF LIBRIUM AND ATIVAN FOR BREAKTHROUGH, PATIENT IS COOPERATIVE AND PLEASANT FOR THIS RN, BLADDER SCAN PREFORMED WHEN HE ENDORSED LOWER QUADRANT PAIN, ~588, VOIDED 650. PATIENT STILL WITH MINOR CRAMPING. ENDORSES A PREVIOUS UROLOGY HISTORY. SPOKE WITH PROVIDER ABOUT PATIENT SIBLEY, BUT MILDLY IMPROVED WITH TYLENOL, CONTINUE TO MONITOR. SITTER AT BEDSIDE, STILL HAVING THOUGHTS OF SI, NO PLAN, NO ACTIONS, WANTS TO GET BETTER (SELF ENDORSED.) HR IMPROVED THROUGHT HE NIGHT FORM 130 TO 60'S THIS AM STILL INFUSING LR. PLAN OF CARE CONTINUES.
[2024-05-09 04:57] LABS: BASOPHILS ABSOLUTE AUTO 0.02 K/mm3 (0.00-0.23); BASOPHILS PERCENT AUTO 0 % (0-2); EOSINOPHILS ABSOLUTE AUTO 0.14 K/mm3 (0.00-0.68); EOSINOPHILS PERCENT AUTO 2 % (0-6); Hematocrit 34.4 % (37.0-53.0); IMMATURE GRAN ABSOLUTE AUTO 0.05 K/mm3 (0.00-0.10); IMMATURE GRAN PERCENT AUTO 1 % (0-1); LYMPHOCYTES ABSOLUTE AUTO 1.06 K/mm3 (0.84-5.20); LYMPHOCYTES PERCENT AUTO 16 % (21-46); MONOCYTES ABSOLUTE AUTO 0.69 K/mm3 (0.16-1.47); MONOCYTES PERCENT AUTO 11 % (4-13); Mean Corpuscular HGB 20.5 pg (26.0-34.0); Mean Corpuscular Volume 64 fL (80-100); Mean Platelet Volume 8.8 fL (9.1-12.4); NEUTROPHILS ABSOLUTE AUTO 4.63 K/mm3 (1.96-9.15); NEUTROPHILS PERCENT AUTO 70 % (41-73); Platelet Count 204 K/mm3 (150-400); RDW Coefficient Variation 16.3 % (11.7-14.2); RDW Standard Deviation 36.3 fL (35.1-46.3); Red Blood Cell Count 5.36 M/mm3 (4.30-5.90); White Blood Cell Count 6.59 K/mm3 (4.00-11.30)
[2024-05-09 05:24] LABS: Bun/Creatinine Ratio 8.7 (12.0-20.0); Calcium, Blood 8.9 mg/dL (8.5-10.1); Creatinine, Blood 0.69 mg/dL (0.60-1.20); Potassium, Blood 3.7 mmol/L (3.5-5.5)
[2024-05-09 05:48] LABS: Magnesium, Blood 1.6 mg/dL (1.6-2.4)
[2024-05-09] MEDS ORDERED: SUMAtriptan Succinate 25 MG Tab PO PRN (09:25)
[2024-05-09 18:43] LABS: BASOPHILS ABSOLUTE AUTO 0.03 K/mm3 (0.00-0.23); BASOPHILS PERCENT AUTO 1 % (0-2); EOSINOPHILS ABSOLUTE AUTO 0.06 K/mm3 (0.00-0.68); EOSINOPHILS PERCENT AUTO 1 % (0-6); Hemoglobin 11.6 g/dL (13.5-17.5); IMMATURE GRAN ABSOLUTE AUTO 0.04 K/mm3 (0.00-0.10); IMMATURE GRAN PERCENT AUTO 1 % (0-1); LYMPHOCYTES ABSOLUTE AUTO 0.83 K/mm3 (0.84-5.20); LYMPHOCYTES PERCENT AUTO 16 % (21-46); MONOCYTES PERCENT AUTO 12 % (4-13); Mean Corpuscular HGB 20.9 pg (26.0-34.0); Mean Corpuscular HGB Conc 32.2 g/dL (31.5-36.5); Mean Corpuscular Volume 65 fL (80-100); Mean Platelet Volume 8.9 fL (9.1-12.4); NEUTROPHILS ABSOLUTE AUTO 3.65 K/mm3 (1.96-9.15); NEUTROPHILS PERCENT AUTO 70 % (41-73); Platelet Count 208 K/mm3 (150-400); RDW Coefficient Variation 16.5 % (11.7-14.2); RDW Standard Deviation 36.9 fL (35.1-46.3); Red Blood Cell Count 5.54 M/mm3 (4.30-5.90); White Blood Cell Count 5.21 K/mm3 (4.00-11.30)
[2024-05-09 18:45] LABS: Base Excess Venous 0 mmol/L; Bicarbonate Venous 25.1 mmol/L (24.0-30.0); PCO2 Venous 32.9 mmHg (38-42); pH Blood Venous 7.47 (7.34-7.37)
--- NOTE | 2024-05-09 18:54 | NUR ---
SHIFT SUMMARY PT A&OX4 THIS SHIFT. VSS. ABLE TO MAKE NEEDS KNOWN. USED URINAL TO VOID. ONE BM, HALLEY FORMED. CIWAS 11-15, MEDICATED PER EMAR. C/O OF HEADACHE. TYLENOL GIVEN W/ NO RELIEF. NOTIFIED. IMITREX ORDERED, GIVEN PER EMAR. PT C/O OF ANXIETY, STATES HE IS ACTIVE AT HOME TO RELIEVE. PT AMBULATED W/ 1P ASSIST, FWW AND GB AROUND UNIT MULTIPLE TIMES. PSYCH MD IN ROOM THIS SHIFT. 1:1 SITTER. LR INFUSING PER EMAR. AT DINNER THIS RN NOTIFIED BY AIDE FOR CHANGE IN PT. AIDE STATES PT WAS CONVERSING, EATING. SAID "I FEEL WIERD" AND BEGAN TO "GLAZE OVER". VITALS STABLE, SEE VITALS. PT MINIMALLY RESPONDING/SLOW TO RESPOND. WEAK DISH UP PERSON STRENGTH. INSIDE [employer]OR SALES NOTIFIED AND IN ROOM TO ASSESS. MD TRIPLETT TO BEDSIDE. ORDERED LABS AND HEAD CT. PT CURRENTLY RESTING IN ROOM.
[2024-05-09 19:12] LABS: Magnesium, Blood 1.4 mg/dL (1.6-2.4)
[2024-05-09 19:13] LABS: Albumin, Blood 3.1 g/dL (3.4-5.0); Albumin/Globulin Ratio 0.9 (0.8-1.8); Bilirubin, Total 0.7 mg/dL (0.1-1.0); Bun/Creatinine Ratio 8.7 (12.0-20.0); Creatinine, Blood 0.69 mg/dL (0.60-1.20); Globulin, Blood 3.6 g/dL (2.2-4.0); Potassium, Blood 3.9 mmol/L (3.5-5.5); Total Protein, Blood 6.7 g/dL (6.4-8.2)
[2024-05-09] MEDS ORDERED: Magnesium Sulf 2 GM/Water 50ML 50 ML IV STA (21:18)
[2024-05-09 22:32] LABS: Phosphorus, Blood 4.2 mg/dL (2.5-4.9)
[2024-05-10 03:11] VITALS: BP 132/92
--- NOTE | 2024-05-10 06:46 | NUR ---
End of shift note. At the start of the shift, Pt was having significant neuro symptoms. Profound weakness, unable to open eyes, slow to respond. Head CT was completed, which was negative. Night Resident MD was notified of situation, came to bedside to see Pt. Some labs ordered. As the night progressed, Pt s symptoms improved. Pt is now able to ambulate to the bathroom with 1P SBA FWW and gait belt. CIWA scores 8,6,15,5. Medicated once, see MAR. Most recent SI score was low risk. Day staff will talk with day team. Pt is able to make needs known, call light is within reach.
[2024-05-10 07:37] VITALS: BP 131/101
[2024-05-10] MEDS ORDERED: Pantoprazole Sodium 20 MG Tab PO SCH (08:00)
[2024-05-10] MEDS ORDERED: Multivitamins 1 Tab PO SCH (09:00)
[2024-05-10] MEDS ORDERED: Thiamine HCl 100 MG Tab PO SCH (09:00)
[2024-05-10 12:47] VITALS: BP 132/92
[2024-05-10] MEDS ORDERED: Citalopram Hydrobromide 20 MG Tab PO SCH (16:40)
[2024-05-10 16:50] VITALS: BP 136/102
--- NOTE | 2024-05-10 17:56 | NUR ---
SHIFT SUMMARY NO ACUTE CHANGES THIS SHIFT. PT A&OX, ABLE TO MAKE NEEDS KNOWN. CIWA OF 6 THIS SHIFT. 1:1 SITTER. SP02>90% ON RA. PT CHANGED TO MED NO TELE STATUS. VSS. C/O OF HEADACHE, MEDICATED W/ TYLENOL PER EMAR. HOME MED CELEXA STARTED PER EMAR. UP TO BATHROOM TO VOID/HAVE BM. AMBULATED MULTIPLE TIMES AROUND UNIT W/ ASSISTANCE/FWW/GB/ANKLE BRACE. UP IN SHOWER W/ ASSISTANCE. FLUIDS D/C'D THIS SHIFT. DIET ADVANCED TO REGULAR. TOLERATING WELL. PT TALKING WITH SITTER IN ROOM.
[2024-05-10 19:15] VITALS: BP 149/106
--- NOTE | 2024-05-10 20:30 | NUR ---
ASSUMPTION OF CARE: PATIENT IS ALERT AND ORIENTED X 4 ABLE TO MAKE NEEDS KNOWN, SITTER PRESENT IN THE ROOM, PATIENT CIWA ON ASSUMPTION 9 GAVE 25 OF LIBRIUM, IMPROVED ON REASSESSMENT NO LONGER TREMULOUS FLUSHED OR TACHACARDIC, HE ALSO ENDORSED "TRACERS" VISUAL HALLUCINATIONS, HELD GABAPENTIN. STILL ENDORSING MUSCLE/SKELETAL TYPE PAIN OF THE CHEST THAT HE HAS HAD SINCE THIS RN HAD, WILL MONITOR. NO ACUTE CONCERNS FROM THIS RN.
[2024-05-10] MEDS ORDERED: HyDROXyzine HCl 25 MG Tab PO ONE (20:40)
[2024-05-11 02:43] VITALS: BP 137/92
--- NOTE | 2024-05-11 07:35 | NUR ---
EOS: ONLY ACUTE CHANGE WAS PATIENT HAD AN EPISODE OF WAKING UP FROM SLEEP WITH SQUEEZING CHEST PAIN, 09/15. EKG PREFORMED, RESIDENT NOTIFIED AND SEEN EKG. NO NEW ORDERS, VSS. PATIENT EDUCATED, INCREASED MONITORING IN PLACE. NO ACUTE CONCERN FROM THIS RN PAIN WORSENED WITH BREATHING AND WAS WORSE WITH TOUCH.
[2024-05-11 07:54] VITALS: BP 126/86
[2024-05-11] MEDS ORDERED: OxyCODONE HCL 5 MG TAB PO PRN (08:30)
[2024-05-11] MEDS ORDERED: HyDROXyzine HCl 25 MG Tab PO SCH ×2 (09:55→16:00)
--- NOTE | 2024-05-11 13:43 | NUR ---
DR TORREZ SAW PT AFTER LUNCH AND CLEARED PT FROM PSYCH STANDPOINT. CALLED DR CHADWICK AND MADE AWARE, AWAITING FOR DISCHARGE ORDERS. PHYSICAL THERAPIST IN THE ROOM WITH THE PT, RECOMMENDING OUTPATIENT THERAPY. PT NOW INDEPENDENT IN THE ROOM. AWAITING FOR ORDERS AT THIS TIME
[2024-05-11] MEDS ORDERED: NICO21TP TOP (14:52)
[2024-05-11] MEDS ORDERED: GABA300 PO ×2 (14:52→14:57)
[2024-05-11] MEDS ORDERED: MULVITA PO (14:52)
--- NOTE | 2024-05-11 16:26 | NUR ---
PT DISCHARGED TO HOME, DISCHARGED MEDS SENT TO [facility]. NEW MEDICATIONS AND DC INSTRUCTIONS DISCLOSED WITH THE PT, PT VERBALIZED UNDERSTANDING. FOLLOW UP APPTS FOR PT TO ARRANGE PHONE CALLS AT HOME. VITALS STABLE NO OTHER ISSUES PRIOR TO DISCHARGE, PT ABLE TO DRESS HIOMSELF INDEPENDENTLY ABLE TO USE PERSONAL CANE. PT FRIEND ABLE TO PROVIDE TRANSPORTATION. ALL BELONGINGS SENT WITH THE PT.
== END 2024-05-11 15:02 | disposition home or self-care (01) | DRG 896 ==
LOC: ER 09:55 → ERHOLD 13:51 → PCU 13:51
PROVIDERS: Emergency Medicine; Family Medicine; Internal Medicine; ADMIT Internal Medicine
PROC: HZ2ZZZZ Detoxification Services for Substance Abuse Treatment (ICD-10-PCS; principal; 2024-05-07)
DX: F10.131 Alcohol abuse with withdrawal delirium (principal); K22.6 Gastro-esophageal laceration-hemorrhage syndrome; K92.1 Melena; R45.851 Suicidal ideations; F05 Delirium due to known physiological condition; F10.139 Alcohol abuse with withdrawal, unspecified; F17.210 Nicotine dependence, cigarettes, uncomplicated; Z66 Do not resuscitate; M25.571 Pain in right ankle and joints of right foot; I10 Essential (primary) hypertension; R56.9 Unspecified convulsions; Z87.19 Personal history of other diseases of the digestive system; Z87.81 Personal history of (healed) traumatic fracture; Z88.5 Allergy status to narcotic agent; Z79.899 Other long term (current) drug therapy; Z71.41 Alcohol abuse counseling and surveillance of alcoholic
CPT/HCPCS: 36415; 70450; 71046; 73610; 80048; 80053; 80320; 82607; 82746; 82803; 83690; 83735; 84100; 84484; 85025; 93005; 93010; 94762; 96361; 96365; 96366; 96367; 96368; 96374; 96375; 96376; 97161; 97530; 99284; 99285-25; A9270; G0378; J2060; J2405; J2470; J2560; J2704; J3411; J3475; J3480; J7050; J7120